=== PATIENT | male | born 1990 | race Two or more races ===

== ENCOUNTER 2016-10-23 12:25 | Emergency (ER) | payer OTHER ==
[2016-10-23 13:06] VITALS: BP 137/67; PULSE 84; TEMP 99.1; BMI 29.4
[2016-10-23] MEDS ORDERED: IBUPROFEN 600 MG TABLET (FP) PO ONE ×2 (14:44→14:50)
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
== END 2016-10-23 15:28 | disposition home or self-care (01) ==
LOC: JERFT 12:25 → JER 12:25 → JERFT 15:28
DX: S16.1XXA Strain of muscle, fascia and tendon at neck level, initial encounter (principal); S39.012A Strain of muscle, fascia and tendon of lower back, initial encounter; V49.49XA Driver injured in collision with other motor vehicles in traffic accident, initial encounter; Y92.414 Local residential or business street as the place of occurrence of the external cause; Y93.89 Activity, other specified; Y99.9 Unspecified external cause status
CPT/HCPCS: 99281-25

== ENCOUNTER 2020-05-11 21:47 | Emergency (ER) | payer OTHER ==
[2020-05-11 22:09] VITALS: BP 137/76; PULSE 84; TEMP 98.7; BMI 25.0
--- NOTE | 2020-05-11 22:27 | PDOC ---
*Physical Exam - Vital Signs Last Vital Signs Temp Pulse Resp BP Pulse Ox 98.7 F 84 20 137/76 99 05/11/20 22:02 05/11/20 22:02 05/11/20 22:02 05/11/20 22:02 05/11/20 22:02 Medical Decision Making - Medical Decision Making 05/11/20 22:26 Patient seen by the advanced practice provider under my supervision. Ancillary testing reviewed as necessary. I agree with plan as outlined by the advanced practice provider. Discharge - Discharge Information Problems reviewed: Yes Clinical Impression/Diagnosis: Anxiety Disposition: HOME - Follow up/Referral - Patient Discharge Instructions - Post Discharge Activity Work/Back to School Note: My Personal Safety Plan
--- NOTE | 2020-05-11 23:30 | PDOC ---
History of Present Illness - General Chief Complaint: Psychiatric Stated Complaint: ANXIETY Time Seen by Provider: 05/11/20 22:18 History Source: Patient - History of Present Illness Initial Comments: 05/11/20 23:23 29-year-old male who smokes marijuana daily reports that he has been feeling anxious, anxiety increasingly worse after smoking marijuana. Patient reports that he he has been increasing the amount of marijuana daily for many weeks and months. Denies suicidal ideation, homicidal ideation. Past History - Medical History Allergies/Adverse Reactions: Allergies Allergy/AdvReac Type Severity Reaction Status Date / Time No Known Allergies Allergy Verified 10/23/16 12:50 Home Medications: Ambulatory Orders Cyclobenzaprine HCl [Flexeril] 5 mg PO HS #4 tablet 09/15/13 Naproxen [Naprosyn -] 500 mg PO BID #20 tablet 09/15/13 No Home Medications 0 dose .ROUTE UTDICT 09/15/13 NK [No Known Home Medication] 10/23/16 COPD: No - Surgical History Appendectomy: Yes - Immunization History Immunization Up to Date: Yes - Psycho-Social/Smoking History Smoking Status: Yes Smoking History: Current some day smoker Have you smoked in the past 12 months: Yes Number of Cigarettes Smoked Daily: 4 Information on smoking cessation initiated: Yes - Substance Abuse Hx (Audit-C & DAST Scrn) How often the patient has a drink containing alcohol: Never Score: In Men: 4 or > Positive; In Women: 3 or > Positive: 0 Screen Result (Pos requires Nsg. Audit-10AR): Negative In the last yr the pt used illegal drug/Rx for NonMed reason: No Score: Yes response is considered Positive: 0 Screen Result (Positive result requires Nsg. DAST-10): Negative *Physical Exam - Vital Signs Last Vital Signs Temp Pulse Resp BP Pulse Ox 98.7 F 84 20 137/76 99 05/11/20 22:02 05/11/20 22:02 05/11/20 22:02 05/11/20 22:02 05/11/20 22:02 - Physical Exam General Appearance: Yes: Appropriately Dressed Respiratory/Chest: positive: Lungs Clear, Normal Breath Sounds Cardiovascular: positive: Regular Rhythm, Regular Rate Integumentary: positive: Normal Color, Dry, Warm Neurologic: positive: Fully Oriented, Alert, Normal Mood/Affect Medical Decision Making - Medical Decision Making 05/12/20 00:34 A: anxiety after cannibis use P: ua urine tox vistaril 05/12/20 00:55 Patient is taking a taxi home. Discharge - Discharge Information Problems reviewed: Yes Clinical Impression/Diagnosis: Anxiety, Cannabis abuse Disposition: HOME - Follow up/Referral - Patient Discharge Instructions Patient Printed Discharge Instructions: DI for Anxiety -- Adult Additional Instructions: [facility], please call [phone]. [facility] : 16/04 Evaluation and Referral Services: or toll free - Post Discharge Activity Work/Back to School Note: My Personal Safety Plan
[2020-05-11] MEDS ORDERED: hydrOXYzine PAMOATE 25 MG CAPSULE (FP) PO ONE (23:52)
[2020-05-12 00:28] LABS: EPI CELLS >36 /uL (0-25.1); HYALINE CASTS 47 /uL (0-3.1); PH,URINE 5.5 (5.0-8.0); URINE APPEARANCE CLEAR; URINE BACTERIA 70 /uL (0-1359); URINE BILIRUBIN NEGATIVE (NEGATIVE); URINE COLOR YELLOW; URINE GLUCOSE (UA) NEGATIVE (NEGATIVE); URINE KETONE 2+ (NEGATIVE); URINE LEUK ESTERASE TRACE (NEGATIVE); URINE NITRITE NEGATIVE (NEGATIVE); URINE PROTEIN 1+ (NEGATIVE); URINE RBC 8 /uL (0-23.9); URINE UROBILINOGEN 0.2 mg/dL (0.2-1.0); URINE WBC 34 /uL (0-25.8)
[2020-05-12 00:33] LABS: COCAINE, UR NEGATIVE ng/ml (CUTOFF=300); OPIATES, URI NEGATIVE ng/ml (CUTOFF=300); URINE AMPHETAMINES NEGATIVE ng/ml (CUTOFF=500); URINE BARBITURATES NEGATIVE ng/ml (CUTOFF=200)
[2020-05-12 00:54] LABS: METHADONE, UR NEGATIVE ng/ml (CUTOFF=300); PHENCYCLIDINE,URINE NEGATIVE ng/ml (CUTOFF=25); URINE BENZODIAZEPINES NEGATIVE ng/ml (CUTOFF=200)
[2020-05-12] MEDS ORDERED: hydrOXYzine PAMOATE 25 MG CAPSULE (FP) PO ONE (00:59)
== END 2020-05-12 01:10 | disposition home or self-care (01) ==
LOC: JER 21:47
DX: F41.9 Anxiety disorder, unspecified (principal)
CPT/HCPCS: 80307; 81003; 99283-25